=== PATIENT | female | born 2000 | race Caucasian/White ===

== ENCOUNTER 2018-02-12 10:35 | Emergency (ER) | payer OTHER ==
[2018-02-12 11:22] VITALS: BP 127/81
--- NOTE | 2018-02-12 11:28 | ED ---
Upper Extremity Pain - HPI Summary HPI Summary: 17 yr old who had sutures placed yesterday evening at [facility] request reeval of her wound. The patient states she cut the finger on a knife at work at 5 pm last evening. Her sutures were put in last evening. Her tetanus shot is up to date per patient. She has numbness in finger tip distal to the cut. - History of Current Complaint Chief Complaint: UCLaceration Stated Complaint: LACERATION LEFT POINTER FINGER-W/C Time Seen by Provider: 02/12/18 11:09 Hx Last Menstrual Period: "Three months ago 'tuyet I'm about to get it." - Allergies/Home Medications Allergies/Adverse Reactions: Allergies Allergy/AdvReac Type Severity Reaction Status Date / Time Penicillins Allergy Hallucinati Verified 02/12/18 10:58 ons Home Medications: Home Medications Acetaminophen [Acetaminophen Extra Strength] 1,000 mg PO Q6H PRN 02/12/18 [ History Confirmed 02/12/18] Dm/Acetaminophen/Doxylamine [Vicks Nyquil Cold-Flu Liquid] 30 ml PO Q6H PRN 12/23 [History Confirmed 02/12/18] Insulin ASPART (NF) [Novolog (NF)] 100 unit .SEE ORDER SEE INSTRUCTIONS [History Confirmed 02/12/18] l-Norgest/E.estradiol-E.estrad [Amethia] 1 tab PO DAILY 02/12/18 [History Confirmed 02/12/18] PMH/Surg Hx/FS Hx/Imm Hx Endocrine/Hematology History: Reports: Hx Diabetes Infectious Disease History: No Infectious Disease History: Denies: Traveled Outside the [place] in Last 30 Days - Family History Known Family History: Positive: None - Social History Occupation: Employed Full-time Alcohol Use: Occasionally Substance Use Type: Reports: Marijuana Substance Use Comment - Amount & Last Used: Occasionally Smoking Status (MU): Never Smoked Tobacco Review of Systems Constitutional: Negative Positive: Other - laceration finger All Other Systems Reviewed And Are Negative: Yes Physical Exam Triage Information Reviewed: Yes Vital Signs On Initial Exam: Initial Vitals Temp Pulse Resp BP Pulse Ox 98.3 F 68 16 136/103 99 02/12/18 10:56 02/12/18 10:56 02/12/18 10:56 02/12/18 10:56 02/12/18 10:56 Vital Signs Reviewed: Yes Appearance: Positive: Well-Appearing, No Pain Distress Skin: Positive: Warm, Skin Color Reflects Adequate Perfusion, Other - 2 CM skin flap type wound that has stutures alread in it. Eyes: Positive: EOMI ENT: Positive: Normal ENT inspection Respiratory/Lung Sounds: Positive: Clear to Auscultation Cardiovascular: Positive: Pulses are Symmetrical in both Upper and Lower Extremities Abdomen Description: Negative: Distended Musculoskeletal: Positive: Strength/ROM Intact, Other - the left index finger has sutures in the wound and is approximated adequately with small 2 mm area that slightly opened. She does not have two point discrimination in the medial side index finger tip distal to the laceration. No redness, swelling or drainage or infection noted Neurological: Positive: Alert, Oriented to Person Place, Time, CN Intact II-III Psychiatric: Positive: Normal - Lemmon Coma Scale Best Eye Response: 4 - Spontaneous Best Motor Response: 6 - Obeys Commands Best Verbal Response: 5 - Oriented Coma Scale Total: 15 Diagnostics - Vital Signs Vital Signs Temp Pulse Resp BP Pulse Ox 02/12/18 11:22 127/81 02/12/18 10:56 98.3 F 68 16 136/103 99 - Laboratory Lab Statement: Any lab studies that have been ordered have been reviewed, and results considered in the medical decision making process. Course/Dx - Course Course Of Treatment: 17 yr old with laceration finger tip, digital nerve injury. recommend keep wound clean, dry. Apply antibiotic ointment twice a day with clean dressing. And she needs to follow up with Hand specialist for her digital nerve injury. - Diagnoses Provider Diagnoses: Laceration of finger, Digital nerve injury Discharge - Sign-Out/Discharge Documenting (check all that apply): Patient Departure All imaging exams completed and their final reports reviewed: No Studies - Discharge Plan Condition: Good Disposition: HOME Patient Education Materials: Finger Laceration (ED), Hypertension (ED) Referrals: Hamilton Woody MD [Medical Doctor] - 1 Day Neris Martinez NP [Primary Care Provider] - Additional Instructions: You have an injury to your digital nerve that requires further evaluation from a hand surgeon. Please go see the specialist you have been referred to here for further hand care in their group. Failure to do so could have permanent disabling effect on your sensation in your finger tip. - Billing Disposition and Condition Condition: GOOD Disposition: Home
== END 2018-02-12 11:28 | disposition home or self-care (01) ==
LOC: UCCORT 10:35
DX: S61.211D Laceration without foreign body of left index finger without damage to nail, subsequent encounter (principal); W26.0XXD Contact with knife, subsequent encounter
CPT/HCPCS: 99201; G0463